=== PATIENT | female | born 1995 | race Caucasian/White ===

== ENCOUNTER 2018-10-27 10:44 | Emergency (ER) | payer MEDICAID ==
[~2018-10-27] VITALS: Ht 160 cm; Wt 59.1 kg
[~2018-10-27 10:44] MED LIST: CEPH-571 PO; CLIN-96 PO
[2018-10-27 11:08] VITALS: BP 127/86
[2018-10-27] MEDS ORDERED: diphenhydrAMINE 25mg capsule PO ONE (12:00)
[2018-10-27] MEDS ORDERED: triamcinolone acetonide 40mg/ml inj IM ONE (12:00)
[2018-10-28] MEDS ORDERED: PRED20TA PO (14:27)
== END 2018-10-27 12:25 | disposition home or self-care (01) ==
LOC: ER 10:44
DX: L29.8 Other pruritus (principal); F15.90 Other stimulant use, unspecified, uncomplicated; Z88.2 Allergy status to sulfonamides; Z88.1 Allergy status to other antibiotic agents; Z79.2 Long term (current) use of antibiotics; Z79.899 Other long term (current) drug therapy; Z86.14 Personal history of Methicillin resistant Staphylococcus aureus infection
CPT/HCPCS: 96372; 99283; J3301; Q0163

== ENCOUNTER 2018-10-28 13:41 | Emergency (ER) | payer MEDICAID ==
[~2018-10-28] VITALS: Ht 160 cm; Wt 56.2 kg
[2018-10-28 13:51] VITALS: BP 116/74
[2018-10-28] MEDS ORDERED: PRED20TA PO (14:27)
== END 2018-10-28 14:37 | disposition home or self-care (01) ==
LOC: ER 13:42
DX: L23.7 Allergic contact dermatitis due to plants, except food (principal); F17.200 Nicotine dependence, unspecified, uncomplicated; F15.90 Other stimulant use, unspecified, uncomplicated; Z86.14 Personal history of Methicillin resistant Staphylococcus aureus infection; Z88.2 Allergy status to sulfonamides; Z88.8 Allergy status to other drugs, medicaments and biological substances; Z79.899 Other long term (current) drug therapy
CPT/HCPCS: 99283

== ENCOUNTER 2018-12-01 23:34 | Emergency (ER) | payer MEDICAID ==
[~2018-12-01] VITALS: Ht 160 cm; Wt 59.3 kg
[2018-12-01 23:36] VITALS: BP 123/89
[2018-12-02] MEDS ORDERED: CEPH500C5 PO (00:22)
[2018-12-02] MEDS ORDERED: DOXY100C2 PO (00:22)
[2018-12-02] MEDS ORDERED: LIDOcaine 1% w/epiNEPHrine 1:200,000 30ml vial IM ONE (00:25)
[2018-12-02] MEDS ORDERED: ONDA4TAB12 PO (03:22)
== END 2018-12-02 01:14 | disposition home or self-care (01) ==
LOC: ER 23:35
DX: L02.414 Cutaneous abscess of left upper limb (principal); L03.114 Cellulitis of left upper limb; F15.10 Other stimulant abuse, uncomplicated; Z86.14 Personal history of Methicillin resistant Staphylococcus aureus infection; Z88.2 Allergy status to sulfonamides; Z88.8 Allergy status to other drugs, medicaments and biological substances; Z79.899 Other long term (current) drug therapy
CPT/HCPCS: 10060; 99283

== ENCOUNTER 2018-12-02 03:11 | Emergency (ER) | payer MEDICAID ==
[~2018-12-02] VITALS: Ht 160 cm; Wt 53.3 kg
[~2018-12-02 03:11] MED LIST changes: +CEPH500C5 PO; +DOXY100C2 PO
[2018-12-02] MEDS ORDERED: ondansetron 4mg rapidly disintigrating tab PO ONE (03:20)
[2018-12-02] MEDS ORDERED: ONDA4TAB12 PO (03:22)
--- NOTE | 2018-12-02 03:23 | NUR ---
PT AGITATED & PULLED BP CUFF OFF RIGHT ARM IT WAS INFLATING. SHE IS REFUSING TO ALLOW BP TO BE TAKEN. PT VERY RESTLESS. DR MONDRAGON ASSESSED PT IN TRIAGE.
== END 2018-12-02 03:35 | disposition home or self-care (01) ==
LOC: ER 03:12
DX: R11.2 Nausea with vomiting, unspecified (principal); T50.995A Adverse effect of other drugs, medicaments and biological substances, initial encounter; F15.90 Other stimulant use, unspecified, uncomplicated; Z86.14 Personal history of Methicillin resistant Staphylococcus aureus infection; Z88.2 Allergy status to sulfonamides; Z88.8 Allergy status to other drugs, medicaments and biological substances; Z79.899 Other long term (current) drug therapy; Y92.89 Other specified places as the place of occurrence of the external cause
CPT/HCPCS: 99283; J2405

== ENCOUNTER 2020-02-02 09:22 | Emergency (ER) | payer MEDICAID ==
[~2020-02-02] VITALS: Ht 160 cm; Wt 77.0 kg
[~2020-02-02 09:22] MED LIST changes: -CEPH500C5 PO; -CLIN-96 PO; +CLIN-97 PO; -DOXY100C2 PO; +ONDA4TAB12 PO
[2020-02-02 09:24] VITALS: BP 142/88
[2020-02-02 10:13] LABS: CLARITY,URINE CLOUDY (Clear); COLOR,URINE YELLOW (Yellow); GLUCOSE, URINE NEGATIVE (Neg); KETONES,URINE NEGATIVE (Neg); LEUKOCYTE ESTERASE ,URINE MODERATE (Neg); NITRITES, URINE POSITIVE (Neg); OCCULT BLOOD,URINE MODERATE (Neg); PROTEIN,URINE 30 mg/dl (Neg)
[2020-02-02 10:14] LABS: URINE HCG NEGATIVE (NEG)
[2020-02-02 10:19] LABS: UA COLLECTION TYPE NON-SPECIFIED
[2020-02-02 10:20] LABS: WBC,URINE 50-100 /HPF (0-4)
[2020-02-02 10:21] LABS: BACTERIA,URINE 3+ /HPF (Neg); MUCUS STRANDS FEW /LPF (Neg); SQUAMOUS EPITHELIAL CELL,UR MANY /LPF (FEW); WBC CLUMPS,URINE FEW /HPF (NEGATIVE)
[2020-02-02] MEDS ORDERED: PHEN-786 PO (10:33)
[2020-02-02] MEDS ORDERED: CEPH-572 PO (10:33)
[2020-02-02 11:07] LABS: CLARITY,URINE CLOUDY (Clear); COLOR,URINE YELLOW (Yellow); GLUCOSE, URINE NEGATIVE (Neg); KETONES,URINE NEGATIVE (Neg); LEUKOCYTE ESTERASE ,URINE MODERATE (Neg); NITRITES, URINE POSITIVE (Neg); OCCULT BLOOD,URINE TRACE-INTACT (Neg); PROTEIN,URINE TRACE mg/dl (Neg)
[2020-02-02 11:13] LABS: UA COLLECTION TYPE NON-SPECIFIED
[2020-02-02 11:14] LABS: SQUAMOUS EPITHELIAL CELL,UR MANY /LPF (FEW)
[2020-02-02 11:15] LABS: MUCUS STRANDS FEW /LPF (Neg)
[2020-02-02 11:16] LABS: BACTERIA,URINE 2+ /HPF (Neg); WBC,URINE 30-50 /HPF (0-4)
[2020-02-02 11:17] LABS: TRANSITIONAL EPI CELLS,URINE FEW /HPF
== END 2020-02-02 11:00 | disposition home or self-care (01) ==
LOC: ER 09:23
DX: N39.0 Urinary tract infection, site not specified (principal); R10.84 Generalized abdominal pain; R30.0 Dysuria; F15.90 Other stimulant use, unspecified, uncomplicated; Z88.1 Allergy status to other antibiotic agents; Z88.8 Allergy status to other drugs, medicaments and biological substances; Z79.2 Long term (current) use of antibiotics
CPT/HCPCS: 81001; 81025; 99283

== ENCOUNTER 2020-03-22 04:45 | Emergency (ER) | payer MEDICAID ==
[~2020-03-22] VITALS: Ht 160 cm; Wt 79.0 kg
[~2020-03-22 04:45] MED LIST changes: +PHEN-786 PO
[2020-03-22 05:43] LABS: CLARITY,URINE CLEAR (Clear); COLOR,URINE YELLOW (Yellow); GLUCOSE, URINE NEGATIVE (Neg); KETONES,URINE NEGATIVE (Neg); LEUKOCYTE ESTERASE ,URINE SMALL (Neg); NITRITES, URINE POSITIVE (Neg); OCCULT BLOOD,URINE NEGATIVE (Neg); PROTEIN,URINE NEGATIVE (Neg)
[2020-03-22 05:44] LABS: EOSINOPHILS # (AUTO) 0.1 X10'3 (0-0.9); MEAN CORPUSCULAR VOLUME 80.7 FL (78-98); NEUTROPHILS # (AUTO) 6.5 X10'3 (1.8-7.7)
[2020-03-22 05:45] LABS: UA COLLECTION TYPE CLN CATCH MIDSTREAM; URINE HCG NEGATIVE (NEG)
[2020-03-22 05:46] LABS: BASOPHILS # (AUTO) 0.1 X10'3 (0-0.2); BASOPHILS % (AUTO) 0.8 % (0-1); EOSINOPHILS % (AUTO) 0.8 % (0-6); HEMATOCRIT 37.4 % (35.0-45.0); HEMOGLOBIN 12.2 g/dl (12.0-16.0); LYMPHOCYTES # (AUTO) 1.4 X10'3 (1.1-4.8); LYMPHOCYTES % (AUTO) 16.1 % (21-51); MEAN CORPUSCULAR HEMOGLOBIN 26.4 PG (27.0-31.0); MEAN CORPUSCULAR HGB CONC 32.7 g/dL (33.0-36.5); MEAN PLATELET VOLUME 8.5 FL (7.4-10.4); MONOCYTES # (AUTO) 0.8 X10'3 (0-0.9); MONOCYTES % (AUTO) 9.4 % (2-12); NEUTROPHILS % (AUTO) 72.9 % (42-75); PLATELET COUNT 339 X10'3 (140-440); RED BLOOD COUNT 4.63 X10'6 (4.20-5.60); RED CELL DISTRIBUTION WIDTH 16.7 % (11.5-14.5); WHITE BLOOD COUNT 8.9 X10'3 (4.5-11.0)
[2020-03-22 06:07] LABS: BACTERIA,URINE 4+ /HPF (Neg); COARSE GRANULAR CAST 0-3 /LPF (NEGATIVE); MUCUS STRANDS MODERATE /LPF (Neg); SQUAMOUS EPITHELIAL CELL,UR MANY /LPF (FEW); WBC,URINE 20-30 /HPF (0-4)
[2020-03-22 06:12] LABS: ALANINE AMINOTRANSFERASE 48 U/L (12-78); ALBUMIN 3.6 G/DL (3.4-5.0); ALBUMIN/GLOBULIN RATIO 0.9 (1.1-1.5); ALKALINE PHOSPHATASE 115 IU/L (46-116); ANION GAP 12 (8-16); ASPARTATE AMINO TRANSFERASE 29 U/L (10-37); BILIRUBIN,TOTAL 0.4 MG/DL (0.1-1.0); BLOOD UREA NITROGEN 12 MG/DL (7-18); BUN/CREATININE RATIO 12.9 (6.6-38.0); CALCIUM 9.3 MG/DL (8.5-10.1); CHLORIDE 104 MMOL/L (99-107); CREATININE 0.93 MG/DL (0.40-0.90); GLUCOSE 92 MG/DL (70-104); LIPASE 54 U/L (73-393); POTASSIUM 3.2 MMOL/L (3.5-5.1); SODIUM 139 MMOL/L (135-145); TOTAL CARBON DIOXIDE 22.7 MMOL/L (24-32); TOTAL PROTEIN 7.5 G/DL (6.4-8.2); eGFR 73 ML/MIN
[2020-03-22] MEDS ORDERED: NITR100C6 PO (06:28)
[2020-03-22 06:40] VITALS: BP 131/78
== END 2020-03-22 06:42 | disposition home or self-care (01) ==
LOC: ER 04:45
DX: N39.0 Urinary tract infection, site not specified (principal); R10.10 Upper abdominal pain, unspecified; F17.200 Nicotine dependence, unspecified, uncomplicated; Z88.2 Allergy status to sulfonamides; Z88.8 Allergy status to other drugs, medicaments and biological substances
CPT/HCPCS: 36415; 80053; 81001; 81025; 83690; 85025; 99283

== ENCOUNTER 2020-04-16 09:54 | Emergency (ER) | payer MEDICAID ==
[~2020-04-16] VITALS: Ht 160 cm; Wt 73.2 kg
[~2020-04-16 09:54] MED LIST changes: +NITR100C6 PO
[2020-04-16] MEDS ORDERED: mag hydrox/Alum hydrox/simeth 30ml oral suspension PO ONE (10:20)
[2020-04-16] MEDS ORDERED: sucralfate 1 gm tablet PO ONE (10:20)
[2020-04-16] MEDS ORDERED: LIDOcaine Viscous 15ml cup MM ONE (10:20)
[2020-04-16] MEDS ORDERED: PANT-47 PO (10:56)
--- NOTE | 2020-04-16 11:06 | NUR ---
spoke to aliya barnard stated no lab or urine needed.
[2020-04-16 11:10] VITALS: BP 113/78
== END 2020-04-16 11:09 | disposition home or self-care (01) ==
LOC: ER 09:55
DX: R10.13 Epigastric pain (principal); F17.200 Nicotine dependence, unspecified, uncomplicated; F15.90 Other stimulant use, unspecified, uncomplicated; Z86.14 Personal history of Methicillin resistant Staphylococcus aureus infection; Z72.89 Other problems related to lifestyle; Z88.2 Allergy status to sulfonamides; Z88.8 Allergy status to other drugs, medicaments and biological substances; Z79.2 Long term (current) use of antibiotics; Z79.899 Other long term (current) drug therapy
CPT/HCPCS: 99283

== ENCOUNTER 2020-05-13 06:35 | Emergency (ER) | payer MEDICAID ==
[~2020-05-13] VITALS: Ht 160 cm; Wt 60.5 kg
[~2020-05-13 06:35] MED LIST changes: +PANT-47 PO
[2020-05-13 06:59] VITALS: BP 144/89
[2020-05-13] MEDS ORDERED: normal saline 1000ML IV soln IVB ONE (07:00)
[2020-05-13] MEDS ORDERED: LORazepam 2 mg/ml vial IV ONE (07:00)
[2020-05-13] MEDS ORDERED: famotidine/PF 10 mg/ml inj IV ONE (07:00)
[2020-05-13] MEDS ORDERED: ondansetron/PF 4mg/2ml inj IV ONE (07:00)
[2020-05-13] MEDS ORDERED: morphine 2 MG/ML inj. syringe IV PRN (07:00)
[2020-05-13 07:29] LABS: HEMOGLOBIN 12.6 g/dl (12.0-16.0); MONOCYTES # (AUTO) 0.6 X10'3 (0-0.9); MONOCYTES % (AUTO) 9.3 % (2-12)
[2020-05-13 07:31] LABS: BASOPHILS % (AUTO) 0.7 % (0-1); EOSINOPHILS % (AUTO) 0.6 % (0-6); HEMATOCRIT 37.1 % (35.0-45.0); LYMPHOCYTES # (AUTO) 1.1 X10'3 (1.1-4.8); LYMPHOCYTES % (AUTO) 17.9 % (21-51); MEAN CORPUSCULAR HEMOGLOBIN 27.1 PG (27.0-31.0); MEAN CORPUSCULAR HGB CONC 33.9 g/dL (33.0-36.5); MEAN CORPUSCULAR VOLUME 80.1 FL (78-98); NEUTROPHILS # (AUTO) 4.4 X10'3 (1.8-7.7); NEUTROPHILS % (AUTO) 71.5 % (42-75); PLATELET COUNT 253 X10'3 (140-440); RED BLOOD COUNT 4.63 X10'6 (4.20-5.60); RED CELL DISTRIBUTION WIDTH 18.3 % (11.5-14.5); WHITE BLOOD COUNT 6.1 X10'3 (4.5-11.0)
[2020-05-13 07:48] LABS: ALANINE AMINOTRANSFERASE 33 U/L (12-78); ALBUMIN 3.9 G/DL (3.4-5.0); ALBUMIN/GLOBULIN RATIO 1.1 (1.1-1.5); ALKALINE PHOSPHATASE 78 IU/L (46-116); ANION GAP 13 (8-16); ASPARTATE AMINO TRANSFERASE 21 U/L (10-37); BILIRUBIN,TOTAL 0.3 MG/DL (0.1-1.0); BLOOD UREA NITROGEN 6 MG/DL (7-18); BUN/CREATININE RATIO 7.4 (6.6-38.0); CALCIUM 8.9 MG/DL (8.5-10.1); CHLORIDE 104 MMOL/L (99-107); CREATININE 0.81 MG/DL (0.40-0.90); GLUCOSE 129 MG/DL (70-104); HCG SERUM QL NEGATIVE; LIPASE 53 U/L (73-393); POTASSIUM 3.3 MMOL/L (3.5-5.1); SODIUM 138 MMOL/L (135-145); TOTAL CARBON DIOXIDE 20.8 MMOL/L (24-32); TOTAL PROTEIN 7.5 G/DL (6.4-8.2); eGFR 86 ML/MIN
--- NOTE | 2020-05-13 07:55 | NUR ---
Pt is spacy since the IV was placed (but still able to walk and talk) and somehow not only pulled her IV out but also broke the IV tubing. she received half of the liter of saline and the other half poured out on the floor. bleeding controlled to her IV site. MD aware. pt now up to bathroom. MD will order a GI cocktail, pt states this has helped in the past.
--- NOTE | 2020-05-13 09:05 | NUR ---
attempted to have the pt call someone to give her a ride home but she can't comprehend how to use her phone to click on the correct luann and then can't type in sentences to message her friend to pick her up. aware and states she is ordering a urine sample on the pt and she wants to keep her until she is more aware of herself and able to think more clearly. earlier the pt walked in to another pt's room and sat down with him. apologized to the other pt and have redirected this pt back to her room multiple times.
[2020-05-13 09:13] LABS: ETHANOL < 0.010 GM/DL (0.0-0.010)
--- NOTE | 2020-05-13 09:29 | NUR ---
Pt refused to give UA. Pt is confused and not speaking about random ideas that don't make sense. Dr. Parsons aware.
--- NOTE | 2020-05-13 11:15 | NUR ---
pt still unable to comprehend how to use her phone to contact a ride. pt has a person sitting with her. pt is saying more rude comments but not aggressive.
--- NOTE | 2020-05-13 11:46 | NUR ---
MD Parsons states that if we can get a ride for the pt who is going to take her home then we can let her go. asked the pt to call for a ride. the states she has a ride on the way. not sure how long it will take. pt is definitely irritated with being in the ER but still needs a responsible person to be with her.
--- NOTE | 2020-05-13 12:14 | NUR ---
pt still acting beligerant but if we can find a safe ride for her MD Parsons is ok with discharging her. pt is not acting safe (saying things at times that don't make sense but at other times having full understandable sentences which is improvement) and need a person to take her and be able to be with her. pt earlier was talking to a april on the phone and crying about needing a ride.
--- NOTE | 2020-05-13 12:25 | NUR ---
ride here and we asked to make sure he is driving and he said he is. also the pt walked with security and I was personally there listening as a staff member verified she has a safe ride. pt yelled at us the whole way to meeting her ride. complaining about us following her and going out to meet her ride.
== END 2020-05-13 12:15 | disposition home or self-care (01) ==
LOC: ER 06:36
DX: R10.13 Epigastric pain (principal); R11.0 Nausea; F17.200 Nicotine dependence, unspecified, uncomplicated; F12.90 Cannabis use, unspecified, uncomplicated; F15.90 Other stimulant use, unspecified, uncomplicated; Z72.89 Other problems related to lifestyle; Z86.14 Personal history of Methicillin resistant Staphylococcus aureus infection; Z88.2 Allergy status to sulfonamides; Z88.8 Allergy status to other drugs, medicaments and biological substances; Z79.2 Long term (current) use of antibiotics; Z79.899 Other long term (current) drug therapy
CPT/HCPCS: 36415; 80053; 80320; 83690; 84703; 85025; 96361; 96374; 96375; 99284; J2060; J2270; J2405; J3490; J7030

== ENCOUNTER 2020-08-26 14:41 | Emergency (ER) | payer MEDICAID ==
--- NOTE | 2020-08-26 14:52 | NUR ---
PT WAS MAKING A SCENE IN THE LOBBY, WOULD NOT CALM DOWN WHEN TALKED TO. SECURITY CALLED AND PT WAS EXCORTED OUT OF THE ER.
== END 2020-08-26 14:56 | disposition left against medical advice (07) ==
LOC: ER 14:44
DX: R10.84 Generalized abdominal pain (principal); Z53.21 Procedure and treatment not carried out due to patient leaving prior to being seen by health care provider

== ENCOUNTER 2020-08-26 19:15 | Emergency (ER) | payer MEDICAID ==
--- NOTE | 2020-08-26 19:20 | NUR ---
PT UNCOOPERATIVE WITH EMS AND ER STAFF FROM THE MOMENT SHE ENTERED THE ER - SHE IS MAKING DEMANDS AND NOT FOLLOWING DIRECTIONS. ER MD HAS DONE MSE AND PT SENT TO TRIAGE FOR FURTHER.
--- NOTE | 2020-08-26 19:34 | NUR ---
PT OUTSIDE - CONTINUES TO BE UNCOOPERATIVE WITH STAFF - [facility] HAS BEEN CALLED
== END 2020-08-26 20:10 | disposition left against medical advice (07) ==
LOC: ER 19:15
DX: R10.84 Generalized abdominal pain (principal); F12.10 Cannabis abuse, uncomplicated; F15.10 Other stimulant abuse, uncomplicated; Z88.2 Allergy status to sulfonamides; Z88.8 Allergy status to other drugs, medicaments and biological substances
CPT/HCPCS: 99283

== ENCOUNTER 2021-02-20 09:15 | Emergency (ER) | payer MEDICAID ==
[~2021-02-20] VITALS: Ht 160 cm; Wt 59.6 kg
[2021-02-20 09:22] VITALS: BP 109/70
== END 2021-02-20 10:32 | disposition left against medical advice (07) ==
LOC: ER 09:16
DX: J02.9 Acute pharyngitis, unspecified (principal); K02.9 Dental caries, unspecified; F12.90 Cannabis use, unspecified, uncomplicated; F15.90 Other stimulant use, unspecified, uncomplicated; Z86.14 Personal history of Methicillin resistant Staphylococcus aureus infection; Z72.89 Other problems related to lifestyle; Z88.1 Allergy status to other antibiotic agents; Z88.8 Allergy status to other drugs, medicaments and biological substances; Z79.2 Long term (current) use of antibiotics; Z79.899 Other long term (current) drug therapy
CPT/HCPCS: 99281

== ENCOUNTER 2021-03-05 22:37 | Emergency (ER) | payer MEDICAID ==
[~2021-03-05] VITALS: Ht 160 cm; Wt 65.0 kg
[2021-03-06 07:00] VITALS: BP 131/82
--- NOTE | 2021-03-06 07:11 | NUR ---
Lydia garcia in EDM - 03/06/21 at 0737 by WENDY PT WAS IN PARKING LOT WAITING TO BE CALLED BACK TO ER ROOM. PT WAS CALLED AND INFORMED THAT HIS ROOM WAS READY. PT STATES THAT HE HAD LEFT FOR HOME APPROX 5 MIN AGO AND TO GIVE THE ROOM TO THE NEXT PT.
[2021-03-06] MEDS ORDERED: ondansetron/PF 4mg/2ml inj IV ONE (07:35)
[2021-03-06] MEDS ORDERED: normal saline 1000ML IV soln IVB ONE (07:35)
[2021-03-06 07:52] LABS: BASOPHILS # (AUTO) 0.1 X10'3 (0-0.2); BASOPHILS % (AUTO) 0.5 % (0-1); EOSINOPHILS % (AUTO) 0 % (0-6); HEMATOCRIT 31.3 % (35.0-45.0); HEMOGLOBIN 9.9 g/dl (12.0-16.0); LYMPHOCYTES # (AUTO) 0.9 X10'3 (1.1-4.8); LYMPHOCYTES % (AUTO) 7.2 % (21-51); MEAN CORPUSCULAR HEMOGLOBIN 20.2 PG (27.0-31.0); MEAN CORPUSCULAR HGB CONC 31.5 g/dL (33.0-36.5); MEAN CORPUSCULAR VOLUME 64.2 FL (78-98); MEAN PLATELET VOLUME 7.8 FL (7.4-10.4); MONOCYTES # (AUTO) 0.5 X10'3 (0-0.9); MONOCYTES % (AUTO) 4.1 % (2-12); NEUTROPHILS % (AUTO) 88.2 % (42-75); PLATELET COUNT 368 X10'3 (140-440); RED BLOOD COUNT 4.87 X10'6 (4.20-5.60); RED CELL DISTRIBUTION WIDTH 19.9 % (11.5-14.5); WHITE BLOOD COUNT 12.5 X10'3 (4.5-11.0)
[2021-03-06] MEDS: morphine 4 MG/ML inj SYRINge IV PRN ×2 (08:04→09:11)
[2021-03-06 08:11] LABS: ALANINE AMINOTRANSFERASE 27 U/L (12-78); ALBUMIN 3.8 G/DL (3.4-5.0); ALBUMIN/GLOBULIN RATIO 0.9 (1.1-1.5); ALKALINE PHOSPHATASE 76 IU/L (46-116); ANION GAP 15 (8-16); ASPARTATE AMINO TRANSFERASE 24 U/L (10-37); BILIRUBIN,TOTAL 0.5 MG/DL (0.1-1.0); BLOOD UREA NITROGEN 10 MG/DL (7-18); BUN/CREATININE RATIO 14.7 (6.6-38.0); CHLORIDE 98 MMOL/L (99-107); CREATININE 0.68 MG/DL (0.40-0.90); GLUCOSE 118 MG/DL (70-104); LIPASE < 50 U/L (73-393); POTASSIUM 3.7 MMOL/L (3.5-5.1); SODIUM 135 MMOL/L (135-145); TOTAL CARBON DIOXIDE 22.1 MMOL/L (24-32); eGFR > 90 ML/MIN
[2021-03-06] MEDS ORDERED: morphine 4 MG/ML inj SYRINge IV ONE (08:35)
[2021-03-06] MEDS ORDERED: sucralfate 1gm/10ml UD suspension PO STA (08:43)
[2021-03-06] MEDS ORDERED: mag hydrox/Alum hydrox/simeth 30ml oral suspension PO ONE (08:45)
[2021-03-06] MEDS ORDERED: LIDOcaine Viscous 15ml cup MM ONE (08:45)
[2021-03-06] MEDS ORDERED: sucralfate 1 gm tablet PO STA (09:03)
[2021-03-06 09:09] LABS: CLARITY,URINE CLOUDY (Clear); COLOR,URINE YELLOW (Yellow); GLUCOSE, URINE NEGATIVE (Neg); KETONES,URINE >=80 mg/dl (Neg); LEUKOCYTE ESTERASE ,URINE SMALL (Neg); NITRITES, URINE NEGATIVE (Neg); OCCULT BLOOD,URINE NEGATIVE (Neg); PROTEIN,URINE TRACE mg/dl (Neg); URINE HCG NEGATIVE (NEG); UROBILINOGEN,URINE 0.2 E.U/dL (0.2-1.0)
[2021-03-06 09:10] LABS: UA COLLECTION TYPE CLN CATCH MIDSTREAM
[2021-03-06 09:17] LABS: BACTERIA,URINE 4+ /HPF (Neg); MUCUS STRANDS MANY /LPF (Neg); RBC,URINE 0-2 /HPF (0-2); SQUAMOUS EPITHELIAL CELL,UR MANY /LPF (FEW); TRICHOMONAS,URINE FEW /HPF (NEGATIVE)
[2021-03-06 09:26] LABS: ANISOCYTOSIS 2+; HYPOCHROMASIA 2+; MICROCYTOSIS 2+; PLATELET ESTIMATE NORMAL; POLYCHROMASIA 1+
[2021-03-06 09:27] LABS: ELLIPTOCYTES FEW; SCHISTOCYTES FEW
[2021-03-06] MEDS ORDERED: SUCR1TAB34 PO (09:30)
[2021-03-06] MEDS ORDERED: ONDA4TAB6 PO (09:30)
== END 2021-03-06 10:44 | disposition home or self-care (01) ==
LOC: ER 22:38
DX: R10.13 Epigastric pain (principal); R11.0 Nausea; F17.200 Nicotine dependence, unspecified, uncomplicated; F12.90 Cannabis use, unspecified, uncomplicated; F15.90 Other stimulant use, unspecified, uncomplicated; F11.90 Opioid use, unspecified, uncomplicated; Z86.14 Personal history of Methicillin resistant Staphylococcus aureus infection; Z72.89 Other problems related to lifestyle; Z88.1 Allergy status to other antibiotic agents; Z88.8 Allergy status to other drugs, medicaments and biological substances; Z79.2 Long term (current) use of antibiotics; Z79.899 Other long term (current) drug therapy
CPT/HCPCS: 36415; 80053; 81001; 81025; 83690; 85008; 85025; 96374; 96375; 96376; 99284; J2270; J2405; J7030

== ENCOUNTER 2022-05-04 20:07 | Emergency (ER) | payer MEDICAID ==
[~2022-05-04] VITALS: Ht 160 cm; Wt 54.5 kg
[~2022-05-04 20:07] MED LIST changes: +ONDA4TAB6 PO; +SUCR1TAB34 PO
[2022-05-04 20:26] VITALS: BP 115/76
[2022-05-04 20:58] LABS: URINE HCG NEGATIVE (NEG)
[2022-05-04 20:59] LABS: CLARITY,URINE CLEAR (Clear); COLOR,URINE YELLOW (Yellow); GLUCOSE, URINE NEGATIVE (Neg); KETONES,URINE NEGATIVE (Neg); LEUKOCYTE ESTERASE ,URINE TRACE (Neg); NITRITES, URINE NEGATIVE (Neg); OCCULT BLOOD,URINE NEGATIVE (Neg); PROTEIN,URINE NEGATIVE (Neg); UROBILINOGEN,URINE 0.2 E.U/dL (0.2-1.0)
[2022-05-04 21:04] LABS: UA COLLECTION TYPE CLN CATCH MIDSTREAM
[2022-05-04 21:06] LABS: BACTERIA,URINE 1+ /HPF (Neg); MUCUS STRANDS FEW /LPF (Neg); RBC,URINE 0-2 /HPF (0-2); SQUAMOUS EPITHELIAL CELL,UR FEW /LPF (FEW); TRANSITIONAL EPI CELLS,URINE FEW /HPF; WBC,URINE 0-4 /HPF (0-4)
[2022-05-04] MEDS ORDERED: cephalexin 250mg capsule PO ONE (22:05)
[2022-05-04] MEDS ORDERED: CEPH500C81 PO (22:22)
== END 2022-05-04 22:25 | disposition home or self-care (01) ==
LOC: ER 20:08
DX: N39.0 Urinary tract infection, site not specified (principal); R30.9 Painful micturition, unspecified; F12.90 Cannabis use, unspecified, uncomplicated; F15.90 Other stimulant use, unspecified, uncomplicated; F11.90 Opioid use, unspecified, uncomplicated; Z86.14 Personal history of Methicillin resistant Staphylococcus aureus infection; Z72.89 Other problems related to lifestyle; Z88.1 Allergy status to other antibiotic agents; Z88.8 Allergy status to other drugs, medicaments and biological substances; Z79.2 Long term (current) use of antibiotics; Z79.899 Other long term (current) drug therapy
CPT/HCPCS: 81001; 81025; 87077; 87088; 87186; 99283

== ENCOUNTER 2023-03-05 02:44 | Emergency (ER) | payer MEDICAID ==
[~2023-03-05] VITALS: Ht 160 cm; Wt 79.5 kg
[2023-03-05 02:50] VITALS: BP 134/90; PULSE 88; RESP 14; TEMP 98.8; O2SAT 99
== END 2023-03-05 03:47 ==
LOC: ER 02:45
DX: F22 Delusional disorders (principal); R07.89 Other chest pain; R10.9 Unspecified abdominal pain; F12.90 Cannabis use, unspecified, uncomplicated; F15.90 Other stimulant use, unspecified, uncomplicated; F11.90 Opioid use, unspecified, uncomplicated; Z90.49 Acquired absence of other specified parts of digestive tract; Z86.14 Personal history of Methicillin resistant Staphylococcus aureus infection; Z88.2 Allergy status to sulfonamides; Z88.8 Allergy status to other drugs, medicaments and biological substances; Z79.899 Other long term (current) drug therapy
CPT/HCPCS: 71045; 93005; 99283